=== PATIENT | female | born 1990 | race African-American/Black ===

== ENCOUNTER 2016-08-17 15:17 | Emergency (ER) | payer SELFPAY ==
[~2016-08-17] VITALS: Ht 177.8 cm; Wt 74.5 kg
[2016-08-17] MEDS ORDERED: SODIUM CHLORIDE 0.9% 1,000 ML IV ONE (17:38)
[2016-08-17] MEDS ORDERED: SODIUM CHLORIDE FLUSH 10ML SYR IVF ONE (18:00)
[2016-08-17] MEDS ORDERED: SODIUM CHLORIDE 0.9% 1,000ML IVBOLUS ONE (18:00)
[2016-08-17 18:15] LABS: HEMOGLOBIN 13.7 g/dL (11.7-16.4)
[2016-08-17 18:33] LABS: ASPARTATE AMINO TRANSFERASE 18 U/L (15-37); BLOOD UREA NITROGEN 18 mg/dL (7-18)
[2016-08-17] MEDS ORDERED: HYDROcodone/APAP 5/325 TABLET PO ONE (19:30)
[2016-08-17] MEDS ORDERED: HYDROcodone/APAP 5/325 TABLET ONE (19:39)
[2016-08-17 20:49] VITALS: BP 13/79
== END 2016-08-17 20:52 | disposition home or self-care (01) ==
LOC: ED 19:31
DX: K92.1 Melena (principal); K92.2 Gastrointestinal hemorrhage, unspecified
CPT/HCPCS: 36415; 74176; 80053; 81003; 83690; 84703; 85025; 85610; 85730; 96360; 96361; 99285; J7030

== ENCOUNTER 2018-01-25 18:04 | Emergency (ER) | payer OTHER ==
[~2018-01-25] VITALS: Ht 172.7 cm; Wt 74.4 kg
[2018-01-25] MEDS ORDERED: DIPHENHYDRAMINE 50 MG CAPSULE ONE (18:25)
[2018-01-25] MEDS ORDERED: DEXAMETHASONE 4 MG TABLET ONE (18:25)
[2018-01-25] MEDS ORDERED: DIPHENHYDRAMINE 25 MG CAPSULE PO ONE (18:30)
[2018-01-25] MEDS ORDERED: DEXAMETHASONE 4 MG TABLET PO ONE (18:30)
[2018-01-25 19:06] VITALS: BP 136/87
== END 2018-01-25 19:37 | disposition home or self-care (01) ==
LOC: ED 18:45
DX: T78.1XXA Other adverse food reactions, not elsewhere classified, initial encounter (principal); X58.XXXA Exposure to other specified factors, initial encounter
CPT/HCPCS: 99283; Q0163